=== PATIENT | female | born 1965 | race Two or more races ===

== ENCOUNTER 2020-12-31 09:15 | Inpatient (IN) | payer OTHER ==
[2020-12-31] MEDS ORDERED: SYNTHROID150 MCG PO (13:39)
[2020-12-31] MEDS ORDERED: BAYER THERAPY325 MG PO (13:39)
[2020-12-31] MEDS ORDERED: VITAMIN D PO (13:40)
[2020-12-31] MEDS ORDERED: MELATONIN10 MG PO (13:40)
[2021-01-07] MEDS ORDERED: VITAMIN D310 MC4 (09:06)
[2021-01-09] MEDS ORDERED: PERCOCET 5-3251 EACH PO (11:46)
[2021-01-09] MEDS ORDERED: ELIQUIS2.5 MG PO (11:46)
[2021-01-09] MEDS ORDERED: DUI500 PO (11:46)
== END 2021-01-09 13:36 | DRG 470 ==
LOC: O/R 01-07 07:05 → SURH 01-07 09:15
PROVIDERS: ADMIT Orthopaedic Surgery; ATTEND Orthopaedic Surgery
PROC: 0SRD0J9 Replacement of Left Knee Joint with Synthetic Substitute, Cemented, Open Approach (ICD-10-PCS; principal; 2021-01-07 13:30)
DX: M17.12 Unilateral primary osteoarthritis, left knee (principal); D62 Acute posthemorrhagic anemia; E66.8 Other obesity